=== PATIENT | female | born 1940 | race Caucasian/White ===

== ENCOUNTER 2017-05-26 17:02 | Inpatient (IN) | payer MEDICARE, MEDICAID ==
--- NOTE | 2017-05-26 19:43 | ED PDOC ---
HPI: Psych/Substance Abuse Time Seen by Provider: 05/26/17 18:01 Chief Complaint (Nursing): Psychiatric Evaluation Chief Complaint (Provider): Psychiatric Evaluation History Per: Patient, Family (daughter) History/Exam Limitations: no limitations Onset/Duration Of Symptoms: Other (prior to arrival) Current Symptoms Are (Timing): Still Present Additional Complaint(s): 77 y/o female with a pmhx of umbilical hernia, Alzheimers, and dementia, who was brought in by daughter for worsening dementia. Patient is under the care of Dr. Armas, who advised she bring the patient here for psychiatric admission. Per daughter, the patient is now giving her home service demonstrator difficulty about eating. Patient reports shes eating, but due to her dementia has poor intake. Daughter reports that this week the patient told the in home therapy clinician that she expresses desire to leave and wander. Daughter expresses concern because she lives in [place], and the patient lives in [place], so she cant take care of her. Patient has no physical complaints. Per daughter, patient is compliant with medications. PMD: Dr. Armas Past Medical History Reviewed: Historical Data, Nursing Documentation, Vital Signs Vital Signs: Last Vital Signs Temp 98.2 F 05/26/17 17:26 Pulse 70 05/26/17 17:26 Resp 18 05/26/17 17:26 BP 124/78 05/26/17 17:26 Pulse Ox 99 05/26/17 17:26 - Medical History PMH: Alzheimer's Disease - Surgical History Surgical History: Cholecystectomy - Family History Family History: States: Unknown Family Hx - Social History Current smoker - smoking cessation education provided: No Alcohol: None Drugs: Denies - Home Medications Home Medications: Ambulatory Orders Medication Instructions Recorded Amantadine HCl [Amantadine] 100 mg PO DAILY 05/26/17 Donepezil HCl [Aricept] 5 mg PO HS 05/26/17 Memantine HCl [Namenda Xr] 28 mg PO DAILY 05/26/17 Multivit-Min/Iron/Folic Acid/K 1 each PO DAILY 05/26/17 [Adults Multivitamin Caplet] - Allergies Allergies/Adverse Reactions: Allergies Allergy/AdvReac Type Severity Reaction Status Date / Time No Known Allergies Allergy Unverified 09/23/12 16:03 Review of Systems ROS Statement: Except As Marked, All Systems Reviewed And Found Negative Physical Exam - Reviewed Nursing Documentation Reviewed: Yes Vital Signs Reviewed: Yes - Physical Exam Comments: GENERAL APPEARANCE: Patient is awake, alert, in no acute distress. SKIN: Warm, dry; (-) cyanosis HEAD: (-) scalp swelling, (-) scalp tenderness. EYES: (-) conjunctival pallor, (-) scleral icterus, (-) nystagmus. ENMT: Mucous membranes moist. Airway patent: (-) stridor. NECK: Supple, FROM (-) tenderness, (-) stiffness CHEST AND RESPIRATORY: (-) rales, (-) rhonchi, (-) wheezes; breath sounds equal. ABDOMEN: Soft, (-) distention, (-) tenderness, (-) guarding. Umbilical hernia noted (-) tenderness (-) strangulation. NEURO AND PSYCH: Mental status as above. Affect: Calm and cooperative. manager administration: Intact. Pupils equal and reactive; EOMI; (-) facial asymmetry; tongue and uvula midline. - Laboratory Results Result Diagrams: 05/26/17 22:45 05/26/17 22:45 Urine dip results: Positive for: Blood (straight cath sample), Nitrate (positive ). Negative for: Leukocyte Esterase, Ketones, Glucose, Bilirubin, Protein - ECG O2 Sat by Pulse Oximetry: 99 (RA) Pulse Ox Interpretation: Normal Medical Decision Making Medical Decision Making: Time: 18:31 Initial Impression: Psychiatric evaluation. Plan: --Crisis evaluation --1:1 observation --Reevaluation 2139 Patient awaiting crisis evaluation. Resting comfortably in ED stretcher in no acute distress. Patient offers no complaints at this time. 2229 Per crisis evaluation, patient to be admitted per Dr Kaba, diagnosis Dementia. Additional orders placed for psychiatric admission. -CBC, CMP -Urinalysis, Urine Drug Screen -CXR -EKG -Alcohol level 2350 Bloodwork reviewed and grossly unremarkable. CXR: no acute disease as read by Anatoliy MOORE EKG and urinalysis/utox pending. 0100 EKG: NSR at 67bpm (-) ectopy (-) ST elevations. QTc 422. Patient pending urine drug screen/analysis. On exam, patient remains AAOx3, in no acute distress. Lungs clear to auscultation, cardiac RRR, abdomen soft, non-tender, repeat neuro exam shows no focal findings. 0245 U/A reviewed. Blood secondary to cath. (+) nitrates. Patient denies any UTI complaints, however Macrobid administered as prophylaxis. Patient medically stable for psychiatric admission. Arrangements made for admission. Scribe Attestation: Documented by Frandy Chang, acting as a scribe for Delilah Cope PA-C. Provider Scribe Attestation: All medical record entries made by the Scribe were at my direction and personally dictated by me. I have reviewed the chart and agree that the record accurately reflects my personal performance of the history, physical exam, medical decision making, and the department course for this patient. I have also personally directed, reviewed, and agree with the discharge instructions and disposition. Disposition - Clinical Impression Clinical Impression: UTI (urinary tract infection), Dementia - Patient ED Disposition Is Patient to be Admitted: Yes - Disposition Disposition Time: 02:45 Condition: FAIR - Pt Status Changed To: Hospital Disposition Of: Inpatient - Admit Certification Admit to Inpatient:: After my assessment, the patient will require hospitalization for at least two midnights. This is because of the severity of symptoms shown, intensity of services needed, and/or the medical risk in this patient being treated as an outpatient. Results - Lab Results Lab Results: 05/26/17 05/26/17 22:45 22:45 WBC 7.3 RBC 4.38 Hgb 13.2 Hct 40.2 MCV 91.9 MCH 30.1 MCHC 32.8 L RDW 13.5 Plt Count 265 MPV 8.3 Neut % (Auto) 60.9 Lymph % (Auto) 29.0 Chase % (Auto) 8.5 Eos % (Auto) 1.1 Baso % (Auto) 0.5 Neut # (Auto) 4.4 Lymph # (Auto) 2.1 Chase # (Auto) 0.6 Eos # (Auto) 0.1 Baso # (Auto) 0.0 Sodium 143 Potassium 3.7 Chloride 102 Carbon Dioxide 27 Anion Gap 18 BUN 19 H Creatinine 0.6 L Est GFR ( Amer) > 60 Est GFR (Non-Af Amer) > 60 Random Glucose 123 H Calcium 9.5 Total Bilirubin 0.6 AST 23 ALT 32 Alkaline Phosphatase 99 Total Protein 8.1 Albumin 3.9 Globulin 4.2 H Albumin/Globulin Ratio 0.9 L Alcohol, Quantitative < 10
[2017-05-26 23:25] LABS: BASO % 0.5 % (0.0-2.0); EOS # 0.1 K/uL (0.0-0.7); EOS % 1.1 % (0.0-4.0); HEMOGLOBIN 13.2 g/dL (12.0-16.0); LYMPH # 2.1 K/uL (1.0-4.3); MEAN CELL VOLUME 91.9 fl (81.0-99.0); MEAN CORPUSCULAR HEMOGLOBIN 30.1 pg (27.0-31.0); MEAN CORPUSCULAR HGB CONC 32.8 g/dL (33.0-37.0); MEAN PLATELET VOLUME 8.3 fl (7.2-11.7); MONO # 0.6 K/uL (0.0-0.8); MONO % 8.5 % (0.0-10.0); NEUT # 4.4 K/uL (1.8-7.0); NEUT % 60.9 % (50.0-75.0); RBC 4.38 Mil/uL (3.80-5.20); RED CELL DISTRIBUTION WIDTH 13.5 % (11.5-14.5); WHITE BLOOD COUNT 7.3 K/uL (4.8-10.8)
[2017-05-26 23:37] LABS: ALB/GLOB RATIO 0.9 (1.0-2.1); ALBUMIN 3.9 g/dL (3.5-5.0); ALT/SGPT 32 U/L (9-52); AST/SGOT 23 U/L (14-36); BLOOD UREA NITROGEN 19 mg/dl (7-17); CALCIUM 9.5 mg/dL (8.4-10.2); GFR AFRICAN-AMERICAN > 60; GFR NON-AFRICAN AMERICAN > 60
[2017-05-27 03:25] LABS: SQUAMOUS EPITHIAL < 1 /hpf (0-5); URINE BACTERIA OCC (<OCC); URINE BILIRUBIN NEGATIVE (NEGATIVE); URINE BLOOD MODERATE (NEGATIVE); URINE CLARITY SLIGHTY-CLOUDY (Clear); URINE COLOR YELLOW (YELLOW); URINE GLUCOSE (UA) NEG (Normal); URINE LEUKOCYTE ESTERASE NEG Leu/uL (Negative); URINE PROTEIN NEGATIVE (NEGATIVE); URINE UROBILINOGEN 0.2-1.0 mg/dL (0.2-1.0)
[2017-05-27] MEDS ORDERED: Magnesium Hydroxide Susp 30 ml UD PO PRN (03:51)
[2017-05-27] MEDS ORDERED: Alum-Mag Hydrox-Simethicone Susp (30 mL) PO PRN (03:51)
[2017-05-27] MEDS ORDERED: Bismuth Subsalicylate 262 mg/15 ml Sus (240 ml) PO PRN (03:51)
[2017-05-27 03:55] LABS: BARBITURATES, UR NEGATIVE (NEGATIVE); BENZODIAZEPINES, UR NEGATIVE (NEGATIVE); OPIATES, UR NEGATIVE (NEGATIVE); PHENCYCLIDINE, UR NEGATIVE (NEGATIVE)
--- NOTE | 2017-05-27 04:44 | PCM.BM ---
<Yadira Win - Last Filed: 05/27/17 04:44> Treatment Plan Problems - Problems identified on initial assessmt Ineffective Coping Date Initiated: 05/27/17 Time Initiated: 04:43 Assessment reference: NA Status: Active Thought Process Date Initiated: 05/27/17 Time Initiated: 04:44 Assessment reference: NA Status: Active Treatment assets and liabiliti Patient Assests: cooperative, ADL independent, physically healthy, good support system, negotiates basic needs Patient Liabilities: imparied memory, language/speech - Milieu Protocol Maintain good personal hygiene: daily Encourage regular showers, every shift Remind patient to perform daily oral care, every shift Assist patient to perform ADL's Conduct patient checks and document Observation sheet: Q15 minutes Maintain personal safety: every shift Educate patient to report safety concerns to staff, every shift Monitor environment for contraband/sharps Medication safety: Monitor for expected outcome, potential side effects: every shift, Assess barriers to learning: every shift, Assess readiness for medication education: every shift Family Contact Family involvement: Family/SO is involved <Desiree Marie - Last Filed: 05/27/17 09:27> - Diagnosis (1) Dementia with behavioral disturbance Status: Acute Interventions: Medication management, Individual and group therapy, Psychoeducation 05/27/17 09:27 <Anahi Ureña - Last Filed: 05/28/17 11:35> Family Contact Family contact: Patient agrees to contact, Family has been contacted by patient , Telephone contact initiated by staff Family contact name: Shayla/Logan Family contacted how many times per week?: 2 Family contact comment: [phone] - Outside Agency Dr. Héctor Pardo MD Care involvment: Information-sharing Agency contact number: [phone] - Goals for Treatment Patient goals for treatment: Pt to be encouraged to attend activity and clinical groups 3-5x per week to identify at least 2 contributing factors to increased agitation, irritability, and aggression. Psycho-education to be provided to patient/family regarding benefits of medications and treatment adherence. Pt to be encouraged to participate in group milieu to develop effective coping skills to reduce aggression and reduce psychiatric hospitalizations. Coordinate discharge resource needs by providing referral for psychiatric treatment follow up in the community. Patient's family/SO goals for treatment: Reportedly, pt's family is looking for fpc care placement. Discharge/Continuing Care - Education Needs Education Needs: Family Medication, Family Diagnosis/Disease Process, Family Coping Skills, Family Placement options, Family Community resources, Family Activities of Daily Living, Family Uses of Medical Equipment, Family Health Practices/Safety, Family Aftercare Safety Plan, Patient Medication, Patient Diagnosis/Disease Process, Patient Coping Skills, Patient Placement options, Patient Community resources, Patient Activities of Daily Living, Patient Uses of Medical Equipment, Patient Health Practices/Safety, Patient Personal Hygiene/ Grooming, Patient Aftercare Safety Plan - Discharge Discharge Criteria: Tolerates medication w/o severe side effects, Normal sleep pattern, Ability to care for self, Reduction of target symptoms Discharge to:: Retirement Facility - Additional Comments 05/28/17 11:29 Pt seen and discussed in team meeting. Pt unable to state reason for hospitalization due to severe cognitive impairment. Pt unaware that she is currently in the hospital. Pt is not alert and oriented to place and time. Pt reported "I'm crazy to go home and my daughter doesn't show up." Pt also talked about how the elevators are not working and how the doors are all locked. When asked whom she lives with, pt stated "I live with God." Pt informed that team is awaiting return call form her daughter to further discuss treatment plan and discharge planning. - Treatment Team Participation Discussed with Family/SO: No Was Patient/Family/SO present at Treatment Team Meeting: Yes
[2017-05-27 06:47] LABS: HDL CHOLESTEROL 39 MG/DL (30-70)
[2017-05-27 06:58] LABS: IRON 43 ug/dL (37-170)
[2017-05-27 06:59] LABS: LDL CHOLESTEROL 102 mg/dL (0-129)
[2017-05-27 07:06] LABS: T4 8.65 ug/dl (5.5-11.0)
[2017-05-27 07:07] LABS: % IRON SATURATION 14 % (20-55); TOTAL IRON BINDING CAPACITY 310 ug/dL (250-450)
[2017-05-27 07:24] LABS: FERRITIN 42.5 ng/Ml (11.1-264.0)
--- NOTE | 2017-05-27 08:27 | RAD ---
HISTORY: COMPARISON: No prior. TECHNIQUE: Chest PA and lateral FINDINGS: LINES AND TUBES: None. LUNG AND PLEURA: The lungs are well inflated and clear. There is bibasilar atelectasis. No focal consolidation. HEART AND MEDIASTINUM: The heart is not enlarged. The hilar and mediastinal contours are within normal limits. SKELETAL STRUCTURES: The bony structures are within normal limits for the patient's age. VISUALIZED UPPER ABDOMEN: Normal. OTHER FINDINGS: None. IMPRESSION: No active pulmonary disease.
[2017-05-27] MEDS ORDERED: Patient's Own Med (Memantine Hcl [Namenda Xr] 28 MG) PO SCH (09:00)
[2017-05-27] MEDS: Multivitamin With Minerals Tab PO SCH (09:29)
--- NOTE | 2017-05-27 10:50 | PCM.PSYCH ---
Initial Psychiatric Evaluation - Initial Psychiatric Evaluation Type of Admission: Voluntary Legal Status: DPOA Chief Complaint (in patient's own words): Worsening dementia Patient's Reaction to Hospitalization: HPI: 77 yo female w/ dementia presents w/ worsening dementia, inability to care for self, poor appetite, poor sleep, excessive wandering and irritability. Patient is unable to give any history, she does not understand why she is in the hospital, her current location or the date. PMHx: Umbilical hernia, Dementia, Parkinson's Disease PPHx: Dementia. Pt is seeing Dr. Pardo for Alzheimers, currently on Namenda , Aricept and Amantadine. ALL: NKDA Current Medications: Active Medications Generic Name Dose Route Start Last Admin Trade Name Freq PRN Reason Stop Dose Admin Acetaminophen 650 mg 05/27/17 03:51 Tylenol 325mg Tab PO Q4 PRN Pain, moderate (4-7) Al Hydrox/Mg Hydrox/Simethicone 30 ml 05/27/17 03:51 Maalox Plus 30 Ml PO Q4 PRN Dyspepsia Amantadine HCl 100 mg 05/27/17 09:00 05/27/17 09:30 Amantadine 100 Mg Cap PO 100 mg DAILY YULISA Administration Bismuth Subsalicylate 524 mg 05/27/17 03:51 Pepto-Bismol PO Q4 PRN Diarrhea Donepezil HCl 5 mg 05/27/17 22:00 Aricept PO HS YULISA Lorazepam 0.5 mg 05/27/17 03:51 Ativan PO 06/10/17 03:52 HS PRN Insomnia Lorazepam 0.5 mg 05/27/17 03:51 Ativan PO 06/10/17 03:52 Q6 PRN Anixety/Agitation Magnesium Hydroxide 30 ml 05/27/17 03:51 Milk Of Magnesia PO HS PRN Constipation Memantine 10 mg 05/27/17 09:00 05/27/17 09:31 Namenda PO 10 mg BID YULISA Administration Multivitamins/Minerals 1 tab 05/27/17 09:00 05/27/17 09:29 Therapeutic-M Tab PO 1 tab DAILY YULISA Administration Past Psychiatric History - Past Psychiatric History Pertinent Medical Hx (Current Medical&Sleep Prob, Allergies): Allergies Allergy/AdvReac Type Severity Reaction Status Date / Time No Known Allergies Allergy Unverified 09/23/12 16:03 Amantadine HCl [Amantadine] 100 mg PO DAILY 05/26/17 Donepezil HCl [Aricept] 5 mg PO HS 05/26/17 Memantine HCl [Namenda Xr] 28 mg PO DAILY 05/26/17 Multivit-Min/Iron/Folic Acid/K [Adults Multivitamin Caplet] 1 each PO DAILY 04/13 Review of Systems - Neurological Neurological: Memory Loss - Psychiatric Psychiatric: Abnormal Sleep Pattern, Behavioral Changes, Change in Appetite, Difficulty Concentrating, Memory Loss Mental Status Examination - Personal Presentation Personal Presentation: Looks stated age - Affect Affect: Constricted - Motor Activity Motor Activity: Calm - Reliability in Providing Information Reliability in Providing Information: Poor, due to cognitve impairment - Speech Speech: Irrelevant, Tangential, Coherent - Mood Mood: Neutral - Formal Thought Process Formal Thought Process: Loosening of associations - Hallucinations/Delusions Additional comments: Denies AH/VH/paranoia/delusions - Obsessions/Compulsions Obsessions: No Compulsions: No - Cognitive Functions Orientation: Person, Place, Situation, Time Sensorium: Alert Attention/Concentration: Easily distracted Judgement: Imparied, as evidence by: Poor judgement, Imparied, as evidence by: Lack of insight into illness Memory: Recent impaired, as evidence by: Inability to recall events of the day, Recent imparied as evidence by:Inability to complete 3/3 object recall, Remote impaired as evidenced by: Inability to recall sig life events, Remote impaired as evidenced by: Inability to recall historical events - Risk Risk: Diminished functioning - Strength & Assets Inventory Strength & Assets Inventory: Family support, Cooperative - Limitations Limitations: Decreased memory, recent DSM 5 DX - DSM 5 DSM 5 Diagnosis: Dementia with behavioral disturbance - Recommended/Plan of Treatment Treatment Recommendations and Plan of Treatment: Dementia with behavioral disturbance -Admit to psychiatry -Individual and group therapy -Psychoeducation -Obtain collateral history -Continue Namenda, Amantadine, Aricept -Ancillary Specialist attempted to call the patient's daughter, MARILYNN, but her voicemail is not activated, pending return call from the family -Disposition planning Projected ELOS: 5-7 days Discharge Plan and Discharge Criteria: Discharge when patient is psychiatrically stable - Smoking Cessation Smoking Cessation Initiated: No Reason for not providing: Not indicated
--- NOTE | 2017-05-27 11:39 | CARD ---
APPROVED REPORT EKG Measurement Heart [id number] <Conclusion> Normal sinus rhythm Normal ECG
[2017-05-27 12:54] LABS: FOLATE > 20.0 ng/mL
[2017-05-28] MEDS: Multivitamin With Minerals Tab PO SCH (08:48)
--- NOTE | 2017-05-28 12:16 | PCM.PYCHPN ---
Psychiatric Progress Note - Psychiatric Progress Note Patient seen today, length of contact: Patient evaluated, case discussed w/ team , chart reviewed Patient Chief Complaint: Worsening dementia Problems Identified/Issues Discussed: Patient participated in treatment team today, but she is unable to give an accurate history due to chronic dementia. She denies depression/anxiety/AH/VH. She has been in good behavioral control, but wanders the halls confused. Program Trainer attempted to call the daughter several times, but she does not have an active voicemail and she has not called the unit, nor has she come to visit her mother. Medication Change: Yes (Increase Aricept) Medical Record Reviewed: Yes Consults ordered or reviewed: Medicine consult Mental Status Examination - Cognitive Function Orientation: Person, Time Memory: Impaired Attention: Poor Concentration: Poor Association: Loose Fund of Knowledge: Poor Decription of patient's judgement and insights: Poor due to chronic dementia - Mood Mood: Neutral - Affect Affect: Constricted - Speech Speech: Appropriate - Formal Thought Process Formal Thought Process: Loosening of associations Psychotic Thoughts and Behaviors: Denies AH/VH/paranoia/delusions - Suicidal Ideation Suicidal Ideation: No - Homicidal Ideation Homicidal Ideation: No Goal/Treatment Plan - Goal/Treatment Plan Need for Continued Stay: Severe functional impairment Progress Toward Problem(s) and Goals/Treatment Plan: Dementia with behavioral disturbance -Individual and group therapy -Psychoeducation -Obtain collateral history -Continue Namenda, Amantadine, Aricept -Program Trainer attempted to call the patient's daughter (POA) several times, but her voicemail is not activated, pending return call from the family -Disposition planning Estimated Date of D/C: 06/02/17
[2017-05-28] MEDS ORDERED: Pneumococcal 23-Valent Vaccine IM ONE (19:30)
--- NOTE | 2017-05-29 08:21 | PCM.PYCHPN ---
Psychiatric Progress Note - Psychiatric Progress Note Patient seen today, length of contact: Patient evaluated, case discussed w/ team , chart reviewed Patient Chief Complaint: Worsening dementia Problems Identified/Issues Discussed: Patient is calm, cooperative, without any periods of agitation or aggression. She is at her baseline of functioning. She continues to have chronic deficits due to her chronic dementia. Patient's daughter, MARILYNN, called SW today. She confirmed the patient's history of dementia and wandering. She is interested in shelter placement for the patient as the patient is not able to care for herself at this time. Medication Change: No Medical Record Reviewed: Yes Consults ordered or reviewed: Medicine consult Mental Status Examination - Cognitive Function Orientation: Person Memory: Impaired Attention: Poor Concentration: Poor Association: Loose Fund of Knowledge: Poor Decription of patient's judgement and insights: Poor due to chronic dementia - Mood Mood: Neutral - Affect Affect: Constricted - Speech Speech: Appropriate - Formal Thought Process Formal Thought Process: Loosening of associations Psychotic Thoughts and Behaviors: Denies AH/VH/paranoia/delusions - Suicidal Ideation Suicidal Ideation: No - Homicidal Ideation Homicidal Ideation: No Goal/Treatment Plan - Goal/Treatment Plan Progress Toward Problem(s) and Goals/Treatment Plan: Dementia with behavioral disturbance; Patient is at her baseline of functioning. She is psychiatrically stable for referral for senior living placement. -Individual and group therapy -Psychoeducation -Continue Namenda, Amantadine, Aricept -Disposition planning Estimated Date of D/C: 05/30/17 - Smoking Cessation Smoking Cessation Initiated: No Reason for not providing: Not indicated
[2017-05-29] MEDS: Multivitamin With Minerals Tab PO SCH (08:28)
--- NOTE | 2017-05-30 08:27 | PCM.PYCHPN ---
Psychiatric Progress Note - Psychiatric Progress Note Patient seen today, length of contact: Patient evaluated, case discussed w/ team , chart reviewed Patient Chief Complaint: Worsening dementia Problems Identified/Issues Discussed: Patient is calm, cooperative, without any periods of agitation or aggression. She is at her baseline of functioning. She continues to have chronic deficits due to her chronic dementia. Medication Change: No Medical Record Reviewed: Yes Consults ordered or reviewed: Medicine consult Mental Status Examination - Cognitive Function Orientation: Person Memory: Impaired Attention: Poor Concentration: Poor Association: Loose Fund of Knowledge: Poor Decription of patient's judgement and insights: Poor due to chronic dementia - Mood Mood: Neutral - Affect Affect: Constricted - Speech Speech: Appropriate - Formal Thought Process Formal Thought Process: Loosening of associations Psychotic Thoughts and Behaviors: Denies AH/VH/paranoia/delusions - Suicidal Ideation Suicidal Ideation: No - Homicidal Ideation Homicidal Ideation: No Goal/Treatment Plan - Goal/Treatment Plan Need for Continued Stay: Severe functional impairment Progress Toward Problem(s) and Goals/Treatment Plan: Dementia with behavioral disturbance; Patient is at her baseline of functioning. She is psychiatrically stable for referral for prison placement. -Individual and group therapy -Psychoeducation -Continue Namenda, Amantadine, Aricept -Disposition planning Estimated Date of D/C: 06/02/17
[2017-05-30] MEDS: Multivitamin With Minerals Tab PO SCH (09:15)
--- NOTE | 2017-05-30 19:55 | CP.PCM.CON ---
History of Present Illness - History of Present Illness History of Present Illness: 77 yo female with history of Dementia admitted to [facility] because of worsening dementia. Review of Systems - Review of Systems All systems: reviewed and no additional remarkable complaints except (aside from those mentioned above, 12 point system review were negative by me) Past Patient History - Past Social History Smoking Status: Never Smoked Alcohol: None Drugs: Denies - CARDIAC Hx Cardiac Disorders: No - PULMONARY Hx Respiratory Disorders: No - NEUROLOGICAL Hx Alzheimer's Disease: Yes Hx Parkinson's Disease: Yes - HEENT Hx HEENT Problems: No - RENAL Hx Chronic Kidney Disease: No - ENDOCRINE/METABOLIC Hx Endocrine Disorders: No - HEMATOLOGICAL/ONCOLOGICAL Hx Blood Disorders: No - INTEGUMENTARY Hx Dermatological Problems: No - MUSCULOSKELETAL/RHEUMATOLOGICAL Hx Falls: Yes (April 2016) - GENITOURINARY/GYNECOLOGICAL Hx Genitourinary Disorders: No - PSYCHIATRIC Hx Substance Use: No - SURGICAL HISTORY Hx Cholecystectomy: Yes Meds Allergies/Adverse Reactions: Allergies Allergy/AdvReac Type Severity Reaction Status Date / Time No Known Allergies Allergy Unverified 09/23/12 16:03 - Medications Medications: Current Medications Acetaminophen (Tylenol 325mg Tab) 650 mg PO Q4 PRN PRN Reason: Pain, moderate (4-7) Last Admin: 05/29/17 21:02 Dose: 650 mg Al Hydrox/Mg Hydrox/Simethicone (Maalox Plus 30 Ml) 30 ml PO Q4 PRN PRN Reason: Dyspepsia Amantadine HCl (Amantadine 100 Mg Cap) 100 mg PO DAILY [facility] Last Admin: 05/30/17 17:53 Dose: 100 mg Bismuth Subsalicylate (Pepto-Bismol) 524 mg PO Q4 PRN PRN Reason: Diarrhea Donepezil HCl (Aricept) 10 mg PO HS [facility] Last Admin: 05/29/17 21:03 Dose: 10 mg Lorazepam (Ativan) 0.5 mg PO HS PRN PRN Reason: Insomnia Stop: 06/10/17 03:52 Lorazepam (Ativan) 0.5 mg PO Q6 PRN PRN Reason: Anixety/Agitation Stop: 06/10/17 03:52 Magnesium Hydroxide (Milk Of Magnesia) 30 ml PO HS PRN PRN Reason: Constipation Memantine (Namenda) 10 mg PO BID YULISA Last Admin: 05/30/17 17:53 Dose: 10 mg Multivitamins/Minerals (Therapeutic-M Tab) 1 tab PO DAILY YULISA Last Admin: 05/30/17 09:15 Dose: 1 tab Nitrofurantoin Macrocrystals (Macrobid) 100 mg PO Q12 [facility] PRN Reason: Protocol Last Admin: 05/30/17 09:15 Dose: 100 mg Physical Exam - Constitutional Appears: No Acute Distress - Head Exam Head Exam: ATRAUMATIC - Eye Exam Eye Exam: absent: Scleral icterus - ENT Exam ENT Exam: Mucous Membranes Moist - Neck Exam Neck exam: Negative for: Meningismus Results - Vital Signs Recent Vital Signs: Last Vital Signs Temp 97.6 F 05/30/17 15:44 Pulse 88 05/30/17 15:44 Resp 18 05/30/17 15:44 BP 120/76 05/30/17 17:00 Pulse Ox 97 05/27/17 03:10 - Labs Result Diagrams: 05/26/17 22:45 05/26/17 22:45
[2017-05-31] MEDS: Multivitamin With Minerals Tab PO SCH (08:23)
--- NOTE | 2017-05-31 08:27 | PCM.PYCHPN ---
Psychiatric Progress Note - Psychiatric Progress Note Patient seen today, length of contact: Patient evaluated, case discussed w/ team , chart reviewed Patient Chief Complaint: Worsening dementia Problems Identified/Issues Discussed: No new events. Patient is calm, cooperative, without any periods of agitation or aggression. She is at her baseline of functioning. She continues to have chronic deficits due to her chronic dementia. Medication Change: No Medical Record Reviewed: Yes Consults ordered or reviewed: Medicine consult Mental Status Examination - Cognitive Function Orientation: Person Memory: Impaired Attention: Poor Concentration: Poor Association: Loose Fund of Knowledge: Poor Decription of patient's judgement and insights: Poor due to chronic dementia - Mood Mood: Neutral - Affect Affect: Constricted - Speech Speech: Appropriate - Formal Thought Process Formal Thought Process: Loosening of associations Psychotic Thoughts and Behaviors: Denies AH/VH/paranoia/delusions - Suicidal Ideation Suicidal Ideation: No - Homicidal Ideation Homicidal Ideation: No Goal/Treatment Plan - Goal/Treatment Plan Need for Continued Stay: Severe functional impairment Progress Toward Problem(s) and Goals/Treatment Plan: Dementia with behavioral disturbance; Patient is at her baseline of functioning. She is psychiatrically stable for referral for residential placement. -Individual and group therapy -Psychoeducation -Continue Namenda, Amantadine, Aricept -Disposition planning Estimated Date of D/C: 06/02/17
[2017-06-01] MEDS: Multivitamin With Minerals Tab PO SCH (08:49)
--- NOTE | 2017-06-01 11:19 | PCM.PYCHPN ---
Psychiatric Progress Note - Psychiatric Progress Note Patient seen today, length of contact: Patient evaluated, case discussed w/ team , chart reviewed Patient Chief Complaint: Worsening dementia Problems Identified/Issues Discussed: No new events overnight. Patient is calm, cooperative, without any periods of agitation or aggression. She is at her baseline of functioning. She continues to have chronic deficits due to her chronic dementia. Medication Change: No Medical Record Reviewed: Yes Consults ordered or reviewed: Medicine consult Mental Status Examination - Cognitive Function Orientation: Person Memory: Impaired Attention: Poor Concentration: Poor Association: Loose Fund of Knowledge: Poor Decription of patient's judgement and insights: Poor due to chronic dementia - Mood Mood: Neutral - Affect Affect: Constricted - Speech Speech: Appropriate - Formal Thought Process Formal Thought Process: Loosening of associations Psychotic Thoughts and Behaviors: Denies AH/VH/paranoia/delusions - Suicidal Ideation Suicidal Ideation: No - Homicidal Ideation Homicidal Ideation: No Goal/Treatment Plan - Goal/Treatment Plan Need for Continued Stay: Severe functional impairment Progress Toward Problem(s) and Goals/Treatment Plan: Dementia with behavioral disturbance; Patient is at her baseline of functioning. She is psychiatrically stable for referral for keno terminal operator placement. -Individual and group therapy -Psychoeducation -Continue Namenda, Amantadine, Aricept -Medicine consult- patient being treated for UTI -Disposition planning Estimated Date of D/C: 06/02/17
[2017-06-02] MEDS: Multivitamin With Minerals Tab PO SCH (08:35)
--- NOTE | 2017-06-02 08:42 | PCM.PYCHPN ---
Psychiatric Progress Note - Psychiatric Progress Note Patient seen today, length of contact: Patient evaluated, case discussed w/ team , chart reviewed Patient Chief Complaint: Worsening dementia Problems Identified/Issues Discussed: No new events. Patient is calm, cooperative, without any periods of agitation or aggression. She is at her baseline of functioning. She continues to have chronic deficits due to her chronic dementia. Medication Change: No Medical Record Reviewed: Yes Consults ordered or reviewed: Medicine consult Mental Status Examination - Cognitive Function Orientation: Person Memory: Impaired Attention: Poor Concentration: Poor Association: Loose Fund of Knowledge: Poor Decription of patient's judgement and insights: Poor due to chronic dementia - Mood Mood: Neutral - Affect Affect: Broad - Speech Speech: Appropriate - Formal Thought Process Formal Thought Process: Loosening of associations Psychotic Thoughts and Behaviors: Denies AH/VH/paranoia/delusions - Suicidal Ideation Suicidal Ideation: No - Homicidal Ideation Homicidal Ideation: No Goal/Treatment Plan - Goal/Treatment Plan Need for Continued Stay: Severe functional impairment Progress Toward Problem(s) and Goals/Treatment Plan: Dementia with behavioral disturbance; Patient is at her baseline of functioning. She is psychiatrically stable for referral for fdc placement. -Individual and group therapy -Psychoeducation -Continue Namenda, Amantadine, Aricept -Medicine consult- patient being treated for UTI -Disposition planning- pending fdc placement Estimated Date of D/C: 06/03/17
[2017-06-03] MEDS: Multivitamin With Minerals Tab PO SCH (08:29)
--- NOTE | 2017-06-03 09:01 | PCM.PYCHPN ---
Psychiatric Progress Note - Psychiatric Progress Note Patient seen today, length of contact: Patient evaluated, case discussed w/ team , chart reviewed Patient Chief Complaint: Worsening dementia Problems Identified/Issues Discussed: Patient is calm, cooperative, without any periods of agitation or aggression. She is at her baseline of functioning. She continues to have chronic deficits due to her chronic dementia. Medication Change: No Medical Record Reviewed: Yes Consults ordered or reviewed: Medicine consult Mental Status Examination - Cognitive Function Orientation: Person Memory: Impaired Attention: Poor Concentration: Poor Association: Loose Fund of Knowledge: Poor Decription of patient's judgement and insights: Poor due to chronic dementia - Mood Mood: Neutral - Affect Affect: Broad - Speech Speech: Appropriate - Formal Thought Process Formal Thought Process: Loosening of associations Psychotic Thoughts and Behaviors: Denies AH/VH/paranoia/delusions - Suicidal Ideation Suicidal Ideation: No - Homicidal Ideation Homicidal Ideation: No Goal/Treatment Plan - Goal/Treatment Plan Progress Toward Problem(s) and Goals/Treatment Plan: Dementia with behavioral disturbance; Patient is at her baseline of functioning. She is psychiatrically stable for referral for emt intermediate placement. -Individual and group therapy -Psychoeducation -Continue Namenda, Amantadine, Aricept -Medicine consult- patient being treated for UTI -Disposition planning- pending [facility] placement Estimated Date of D/C: 06/03/17
--- NOTE | 2017-06-04 08:40 | PCM.PYCHPN ---
Psychiatric Progress Note - Psychiatric Progress Note Patient seen today, length of contact: Patient evaluated, case discussed w/ team , chart reviewed Patient Chief Complaint: Worsening dementia Problems Identified/Issues Discussed: No new events. Patient is calm, cooperative, without any periods of agitation or aggression. She is at her baseline of functioning. She continues to have chronic deficits due to her chronic dementia. Medication Change: No Medical Record Reviewed: Yes Mental Status Examination - Cognitive Function Orientation: Person Memory: Impaired Attention: Poor Concentration: Poor Association: Loose Fund of Knowledge: Poor Decription of patient's judgement and insights: Poor due to chronic dementia - Mood Mood: Neutral - Affect Affect: Broad - Speech Speech: Appropriate - Formal Thought Process Formal Thought Process: Loosening of associations Psychotic Thoughts and Behaviors: Denies AH/VH/paranoia/delusions - Suicidal Ideation Suicidal Ideation: No - Homicidal Ideation Homicidal Ideation: No Goal/Treatment Plan - Goal/Treatment Plan Need for Continued Stay: Severe functional impairment Progress Toward Problem(s) and Goals/Treatment Plan: Dementia with behavioral disturbance; Patient is at her baseline of functioning. She is psychiatrically stable for referral for senior living placement. -Individual and group therapy -Psychoeducation -Continue Namenda, Amantadine, Aricept -Medicine consult- patient treated for UTI -Disposition planning- pending motion study technician placement Estimated Date of D/C: 06/05/17
[2017-06-04] MEDS: Multivitamin With Minerals Tab PO SCH (08:46)
--- NOTE | 2017-06-04 13:28 | PCM.BM ---
Treatment Plan Problems - Problems identified on initial assessmt Ineffective Coping Date Initiated: 05/27/17 Time Initiated: 04:43 Assessment reference: NA Status: Active Thought Process Date Initiated: 05/27/17 Time Initiated: 04:44 Assessment reference: NA Status: Active Treatment assets and liabiliti Patient Assests: cooperative, ADL independent, physically healthy, good support system, negotiates basic needs Patient Liabilities: imparied memory, language/speech - Milieu Protocol Maintain good personal hygiene: daily Encourage regular showers, every shift Remind patient to perform daily oral care, every shift Assist patient to perform ADL's Conduct patient checks and document Observation sheet: Q15 minutes Maintain personal safety: every shift Educate patient to report safety concerns to staff, every shift Monitor environment for contraband/sharps Medication safety: Monitor for expected outcome, potential side effects: every shift, Assess barriers to learning: every shift, Assess readiness for medication education: every shift Milieu Narrative: Dementia with behavioral disturbance; Patient is at her baseline of functioning. She is psychiatrically stable for referral for remote computer terminal operator placement. -Individual and group therapy -Psychoeducation -Continue Namenda, Amantadine, Aricept -Medicine consult- patient treated for UTI -Disposition planning- pending remote computer terminal operator placement Family Contact Family contact: Patient agrees to contact, Family has been contacted by patient , Telephone contact initiated by staff Family contact name: Shayla/Logan Family contacted how many times per week?: 2 Family contact comment: [phone] - Outside Agency Dr. Héctor Pardo MD Care involvment: Information-sharing Agency contact number: [phone] - Goals for Treatment Patient goals for treatment: Pt to be encouraged to attend activity and clinical groups 3-5x per week to identify at least 2 contributing factors to increased agitation, irritability, and aggression. Psycho-education to be provided to patient/family regarding benefits of medications and treatment adherence. Pt to be encouraged to participate in group milieu to develop effective coping skills to reduce aggression and reduce psychiatric hospitalizations. Coordinate discharge resource needs by providing referral for psychiatric treatment follow up in the community. Patient's family/SO goals for treatment: Reportedly, pt's family is looking for senior care care placement. Discharge/Continuing Care - Education Needs Education Needs: Family Medication, Family Diagnosis/Disease Process, Family Coping Skills, Family Placement options, Family Community resources, Family Activities of Daily Living, Family Uses of Medical Equipment, Family Health Practices/Safety, Family Aftercare Safety Plan, Patient Medication, Patient Diagnosis/Disease Process, Patient Coping Skills, Patient Placement options, Patient Community resources, Patient Activities of Daily Living, Patient Uses of Medical Equipment, Patient Health Practices/Safety, Patient Personal Hygiene/ Grooming, Patient Aftercare Safety Plan - Discharge Discharge Criteria: Tolerates medication w/o severe side effects, Normal sleep pattern, Ability to care for self, Reduction of target symptoms [facility] - Additional Comments 05/28/17 11:29 Pt seen and discussed in team meeting. Pt unable to state reason for hospitalization due to severe cognitive impairment. Pt unaware that she is currently in the hospital. Pt is not alert and oriented to place and time. Pt reported "I'm crazy to go home and my daughter doesn't show up." Pt also talked about how the elevators are not working and how the doors are all locked. When asked whom she lives with, pt stated "I live with God." Pt informed that team is awaiting return call form her daughter to further discuss treatment plan and discharge planning. - Treatment Team Participation Patient/Family/SO Statement: Dementia with behavioral disturbance; Patient is at her baseline of functioning. She is psychiatrically stable for referral for remote computer terminal operator placement. -Individual and group therapy -Psychoeducation -Continue Namenda, Amantadine, Aricept -Medicine consult- patient treated for UTI -Disposition planning- pending senior care placement Discussed with Family/SO: No Was Patient/Family/SO present at Treatment Team Meeting: Yes Treatment Plan Review Family/SO/Caregiver participation: No Additional Comments: Pt seen and reviewed in team meeting. Pt's progress on the unit reviewed and discussed. Pt remains confused and disoriented. Pt alert and oriented to person only. Thought process is disorganized. Pt unable to engage in proper conversation. Pt replies to questions with nursery rhymes. Pt requires frequent re-direction and promptings. Pt compliant with medication. No aggressive or assaultive bx's on the unit. Pt is pending transfer to accepting facility, [place] for placement. Pt to continue current tx plan. SW will continue to follow case. - Problem Ineffective Coping Date Initiated: 05/27/17 Time Initiated: 04:43 Progress toward outcomes: unchanged Thought Process Date Initiated: 05/27/17 Time Initiated: 04:44 Progress toward outcomes: unchanged - Discharge / Continuing Care [facility]:: [facility] Behavioral Health Services: Other (Support Group Therapy; medication management) Health Needs: Follow up care/test, Doctor appointments, Special equipment, Nutritional, Medications/Rx
[2017-06-05] MEDS: Multivitamin With Minerals Tab PO SCH (08:39)
--- NOTE | 2017-06-05 09:24 | PCM.PYCHPN ---
Psychiatric Progress Note - Psychiatric Progress Note Patient seen today, length of contact: Patient evaluated, case discussed w/ team , chart reviewed Patient Chief Complaint: Worsening dementia Problems Identified/Issues Discussed: No new events overnight. Patient is calm, cooperative, without any periods of agitation or aggression. She is at her baseline of functioning. She continues to have chronic deficits due to her chronic dementia. Medication Change: No Medical Record Reviewed: Yes Mental Status Examination - Cognitive Function Orientation: Person Memory: Impaired Attention: Poor Concentration: Poor Association: Loose Fund of Knowledge: Poor Decription of patient's judgement and insights: Poor due to chronic dementia - Mood Mood: Neutral - Affect Affect: Broad - Speech Speech: Appropriate - Formal Thought Process Formal Thought Process: Loosening of associations Psychotic Thoughts and Behaviors: Denies AH/VH/paranoia/delusions - Suicidal Ideation Suicidal Ideation: No - Homicidal Ideation Homicidal Ideation: No Goal/Treatment Plan - Goal/Treatment Plan Need for Continued Stay: Severe functional impairment Progress Toward Problem(s) and Goals/Treatment Plan: Dementia with behavioral disturbance; Patient is at her baseline of functioning. She is psychiatrically stable for referral for [facility] placement. -Individual and group therapy -Psychoeducation -Continue Namenda, Amantadine, Aricept -Medicine consult- patient treated for UTI -Disposition planning- pending [facility] placement Estimated Date of D/C: 06/05/17
[2017-06-05 15:52] VITALS: RESP 20
[2017-06-06 06:20] VITALS: BP 138/71; PULSE 73; TEMP 97.2; O2SAT 20
[2017-06-06] MEDS: Multivitamin With Minerals Tab PO SCH (08:14)
--- NOTE | 2017-06-06 08:26 | PCM.PYCHPN ---
Psychiatric Progress Note - Psychiatric Progress Note Patient seen today, length of contact: Patient evaluated, case discussed w/ team , chart reviewed Patient Chief Complaint: Worsening dementia Problems Identified/Issues Discussed: No new events. Patient is calm, cooperative, without any periods of agitation or aggression. She is at her baseline of functioning. She continues to have chronic deficits due to her chronic dementia. Medication Change: No Medical Record Reviewed: Yes Consults ordered or reviewed: Medicine consult Mental Status Examination - Cognitive Function Orientation: Person Memory: Impaired Attention: Poor Concentration: Poor Association: Loose Fund of Knowledge: Poor Decription of patient's judgement and insights: Poor due to chronic dementia - Mood Mood: Neutral - Affect Affect: Broad - Speech Speech: Appropriate - Formal Thought Process Formal Thought Process: Loosening of associations Psychotic Thoughts and Behaviors: Denies AH/VH/paranoia/delusions - Suicidal Ideation Suicidal Ideation: No - Homicidal Ideation Homicidal Ideation: No Goal/Treatment Plan - Goal/Treatment Plan Need for Continued Stay: Severe functional impairment Progress Toward Problem(s) and Goals/Treatment Plan: Dementia with behavioral disturbance; Patient is at her baseline of functioning. She is psychiatrically stable for referral for assisted placement. -Individual and group therapy -Psychoeducation -Continue Namenda, Amantadine, Aricept -Medicine consult- patient treated for UTI -Disposition planning- pending assisted placement Estimated Date of D/C: 06/09/17
--- NOTE | 2017-06-06 09:15 | PCM.PYCHDC ---
Mental Status Examination - Mental Status Examination Orientation: Person Memory: Impaired Mood: Neutral Affect: Broad Speech: Appropriate Attention: Poor Concentration: Poor Association: Loose Fund of Knowledge: Poor Formal Thought Process: Loosening of associations Description of patient's judgement and insight: Poor due to chronic dementia Psychotic Thoughts and Behaviors: Denies AH/VH/paranoia/delusions Suicidal Ideation: No Current Homicidal Ideation?: No Discharge Summary - Discharge Note Reason for Hospitalization: HPI: 77 yo female w/ dementia presents w/ worsening dementia, inability to care for self, poor appetite, poor sleep, excessive wandering and irritability. Patient is unable to give any history, she does not understand why she is in the hospital, her current location or the date. PMHx: Umbilical hernia, Dementia, Parkinson's Disease PPHx: Dementia. Pt is seeing Dr. Pardo for Alzheimers, currently on Namenda , Aricept and Amantadine. ALL: NKDA Consultations:: List each consultation separately and include: 1. Reason for request. 2. Findings. 3. Follow-up Consultations: Medicine consult Summary of Hospital Course include:: 1. Description of specific treatment plan utilized for patients during their course of treatmen. 2. Summarize the time- course for resolution of acute symptoms and/or regressed behaviors. 3. Describe issues identified and worked on during hospitalization. 4. Describe medication utilized. 5. Describe medical problems identified and treated. 6. Reassessment of suicide risk Summary of Hospital Course: Patient was admitted to the psychiatry unit. Individual and group therapy were provided. Patient was stabilized on Amantadine, Aricept and Namenda. She is at her baseline of functioning and is currently psychiatrically stable for discharge. Case discussed with patient's daughter. No periods of agitation or aggression. - Diagnosis (1) Dementia with behavioral disturbance Current Visit: Yes Status: Chronic - Final Diagnosis (DSM 5) Condition upon Discharge: STABLE DSM 5: Dementia with behavioral disturbances Disposition: TRANSF TO SNF Follow-up Treatment Plan: Dementia with behavioral disturbance; Patient is at her baseline of functioning. She is psychiatrically stable for discharge to SNF. -Continue Namenda, Amantadine, Aricept -Medicine consult- patient treated for UTI - Smoking Cessation Smoking Cessation Medication prescribed: No Reason for not providing: Not indicated - Antipsychotic Medications Pt discharged on 2 or more routine antipsychotic medications: No
== END 2017-06-06 13:25 | DRG 57 ==
LOC: H.ER 17:02 → H.ERHOLD 05-27 02:42 → H.STEP 05-27 03:19
PROVIDERS: ADMIT Psychiatry & Neurology Psychiatry; ATTEND Psychiatry & Neurology Psychiatry
PROC: GZHZZZZ Group Psychotherapy (ICD-10-PCS; principal; 2017-05-27)
PROC: GZ58ZZZ Individual Psychotherapy, Cognitive-Behavioral (ICD-10-PCS; 2017-05-27)
PROC: 3E0234Z Introduction of Serum, Toxoid and Vaccine into Muscle, Percutaneous Approach (ICD-10-PCS; 2017-05-29)
DX: G30.9 Alzheimer's disease, unspecified (principal); F02.81 Dementia in other diseases classified elsewhere, unspecified severity, with behavioral disturbance; N39.0 Urinary tract infection, site not specified; G20 Parkinson's disease; Z91.83 Wandering in diseases classified elsewhere; Z23 Encounter for immunization